=== PATIENT | female | born 1945 | race Caucasian/White ===

== ENCOUNTER 2017-04-19 22:53 | Inpatient (IN) | payer MEDICARE, MEDICAID ==
[~2017-04-19] VITALS: Ht 160 cm; Wt 50.0 kg
[~2017-04-19 22:53] MED LIST: NAPR-1154 PO; NITR100C6 PO
[2017-04-19 23:57] LABS: BASOPHILS % (AUTO) 0.4 % (0-1); EOSINOPHILS # (AUTO) 0.2 X10'3 (0-0.9); EOSINOPHILS % (AUTO) 1.9 % (0-6); HEMATOCRIT 36.4 % (35.0-45.0); LYMPHOCYTES # (AUTO) 1.5 X10'3 (1.1-4.8); LYMPHOCYTES % (AUTO) 14.3 % (21-51); MEAN CORPUSCULAR HEMOGLOBIN 30.2 PG (27.0-31.0); MEAN CORPUSCULAR VOLUME 91.6 FL (78-98); MEAN PLATELET VOLUME 8.8 FL (7.4-10.4); MONOCYTES # (AUTO) 0.6 X10'3 (0-0.9); MONOCYTES % (AUTO) 5.3 % (2-12); NEUTROPHILS # (AUTO) 8.2 X10'3 (1.8-7.7); NEUTROPHILS % (AUTO) 78.1 % (42-75); PLATELET COUNT 214 X10'3 (140-440); RED BLOOD COUNT 3.97 X10'6 (4.20-5.60); WHITE BLOOD COUNT 10.5 X10'3 (4.5-11.0)
[2017-04-20 00:15] LABS: ALANINE AMINOTRANSFERASE 59 U/L (12-78); ALBUMIN 3.5 G/DL (3.4-5.0); ALBUMIN/GLOBULIN RATIO 0.9 (1.1-1.5); ALKALINE PHOSPHATASE 130 IU/L (46-116); ANION GAP 11 (8-16); ASPARTATE AMINO TRANSFERASE 54 U/L (10-37); BILIRUBIN,TOTAL 0.5 MG/DL (0.1-1.0); BLOOD UREA NITROGEN 20 MG/DL (7-18); BUN/CREATININE RATIO 21.5 (6.6-38.0); CALCIUM 8.7 MG/DL (8.5-10.1); CHLORIDE 105 MMOL/L (99-107); CREATININE 0.93 MG/DL (0.40-0.90); GLUCOSE 131 MG/DL (70-104); POTASSIUM 3.9 MMOL/L (3.5-5.1); SODIUM 138 MMOL/L (135-145); TOTAL CARBON DIOXIDE 21.9 MMOL/L (24-32); TOTAL PROTEIN 7.3 G/DL (6.4-8.2); eGFR 59 ML/MIN
[2017-04-20] MEDS ORDERED: diltiazem 5mg/ml 5ml inj. IV ONE ×2 (00:20→01:20)
[2017-04-20] MEDS ORDERED: NO HOME MEDS (02:08)
[2017-04-20] MEDS ORDERED: magnesium hydroxide 30ml (MOM) UD suspension PO PRN (02:50)
[2017-04-20] MEDS ORDERED: ondansetron/PF 4mg/2ml inj IV PRN (02:50)
[2017-04-20] MEDS ORDERED: acetaminophen 325mg tablet PO PRN ×2 (02:50)
[2017-04-20] MEDS ORDERED: mag hydrox/Alum hydrox/simeth 30ml oral suspension PO PRN (02:50)
[2017-04-20] MEDS ORDERED: thiamine inj. 100 MG in normal saline 100ml IV soln 100 ML IV ONE (02:55)
[2017-04-20] MEDS ORDERED: LORazepam 2 mg/ml vial IV PRN (02:55)
[2017-04-20 04:17] LABS: INR 1.1 INR; PARTIAL THROMBOPLASTIN TIME 23 SECONDS (22-32); PROTHROMBIN TIME 10.9 SECONDS (9.0-12.0)
[2017-04-20] MEDS ORDERED: thiamine 100mg/ml 2ml inj. IV ONE (04:50)
[2017-04-20] MEDS: diltiazem CD 180mg cap (once-daily) PO SCH (04:58)
[2017-04-20 11:00] VITALS: BP 133/83
[2017-04-20] MEDS: multivitamins, therapeutics tablet PO SCH (11:22)
[2017-04-20] MEDS: folic acid 1mg tablet PO SCH (11:23)
[2017-04-20] MEDS: thiamine 100mg tablet PO SCH (11:23)
[2017-04-20 15:00] VITALS: BP 137/90
[2017-04-20 19:00] VITALS: BP 134/89
[2017-04-20] MEDS: apixaban 5mg tablet PO SCH (21:02)
[2017-04-20] MEDS: metoprolol tartrate 12.5mg (1/2 tablet) PO SCH (21:02)
[2017-04-20 23:00] VITALS: BP 151/84
[2017-04-21 03:00] VITALS: BP 149/98
[2017-04-21 07:00] VITALS: BP 144/107
[2017-04-21] MEDS ORDERED: furosemide 20 MG/2 ML vial IV SCH (08:00)
[2017-04-21] MEDS: metoprolol tartrate 12.5mg (1/2 tablet) PO SCH (08:49)
[2017-04-21] MEDS: folic acid 1mg tablet PO SCH (08:50)
[2017-04-21] MEDS: diltiazem CD 180mg cap (once-daily) PO SCH (08:50)
[2017-04-21] MEDS: thiamine 100mg tablet PO SCH (08:50)
[2017-04-21] MEDS: multivitamins, therapeutics tablet PO SCH (08:50)
[2017-04-21] MEDS ORDERED: metoprolol tartrate 12.5mg (1/2 tablet) PO ONE (09:25)
[2017-04-21] MEDS: apixaban 5mg tablet PO SCH (09:51)
[2017-04-21 11:00] VITALS: BP 151/109
[2017-04-21] MEDS ORDERED: FOLI1TAB16 PO (14:29)
[2017-04-21] MEDS ORDERED: MULT-1179 PO (14:29)
[2017-04-21] MEDS ORDERED: METO25TA6 PO (14:29)
[2017-04-21] MEDS ORDERED: DILT180C66 PO (14:29)
[2017-04-21] MEDS ORDERED: THI100T PO (14:29)
[2017-04-21 15:00] VITALS: BP 139/108
[2017-04-21] MEDS ORDERED: APIX5TAB3 PO (15:59)
[2017-04-21] MEDS ORDERED: metoprolol tartrate 25mg tablet PO SCH (20:00)
== END 2017-04-21 16:20 | disposition home or self-care (01) | DRG 309 ==
LOC: ER 22:53 → ED HOLD 04-20 02:49 → PCU 3S 04-20 07:00
PROVIDERS: ADMIT Internal Medicine; ATTEND Family Medicine
DX: I48.0 Paroxysmal atrial fibrillation (principal); E46 Unspecified protein-calorie malnutrition; I42.9 Cardiomyopathy, unspecified; I11.0 Hypertensive heart disease with heart failure; I50.9 Heart failure, unspecified; Z68.1 Body mass index [BMI] 19.9 or less, adult; J98.11 Atelectasis; D25.9 Leiomyoma of uterus, unspecified; F10.10 Alcohol abuse, uncomplicated; F15.90 Other stimulant use, unspecified, uncomplicated; G89.29 Other chronic pain; J44.9 Chronic obstructive pulmonary disease, unspecified; M54.9 Dorsalgia, unspecified; R91.1 Solitary pulmonary nodule; M16.12 Unilateral primary osteoarthritis, left hip; Z93.3 Colostomy status; Z59.0 Homelessness; Z91.19 Patient's noncompliance with other medical treatment and regimen; Z98.51 Tubal ligation status; Z85.038 Personal history of other malignant neoplasm of large intestine
CPT/HCPCS: 36415; 71045; 71250; 74176; 80053; 83880; 84484; 85025; 85610; 85730; 93005; 93306; 96374; 96376; 99291; J1940; J3411; J3490; J7030

== ENCOUNTER 2018-01-22 11:30 | Emergency (ER) | payer MEDICARE, MEDICAID ==
[~2018-01-22] VITALS: Ht 162.6 cm; Wt 50.0 kg
[~2018-01-22 11:30] MED LIST changes: +APIX5TAB3 PO; +DILT180C66 PO; +FOLI1TAB16 PO; +METO25TA6 PO; +MULT-1179 PO; -NAPR-1154 PO; -NITR100C6 PO; +NO HOME MEDS; +THI100T PO
[2018-01-22 13:02] VITALS: BP 145/78
== END 2018-01-22 13:00 | disposition home or self-care (01) ==
LOC: ER 11:31
DX: T44.7X1A Poisoning by beta-adrenoreceptor antagonists, accidental (unintentional), initial encounter (principal); T39.011A Poisoning by aspirin, accidental (unintentional), initial encounter; I10 Essential (primary) hypertension; G89.29 Other chronic pain; F15.10 Other stimulant abuse, uncomplicated; Z79.899 Other long term (current) drug therapy; Z60.2 Problems related to living alone; Y92.89 Other specified places as the place of occurrence of the external cause
CPT/HCPCS: 99284

== ENCOUNTER 2019-02-21 10:46 | Emergency (ER) | payer MEDICARE, MEDICAID ==
[~2019-02-21] VITALS: Ht 162.6 cm; Wt 44.4 kg
[2019-02-21 10:56] VITALS: BP 168/120
[2019-02-21] MEDS ORDERED: ibuprofen tablet 400 MG TABLET PO ONE (11:15)
[2019-02-21] MEDS ORDERED: acetaminophen 325mg tablet PO ONE (11:15)
== END 2019-02-21 11:48 | disposition home or self-care (01) ==
LOC: ER 10:46
DX: M79.604 Pain in right leg (principal); M79.651 Pain in right thigh; I10 Essential (primary) hypertension; G89.29 Other chronic pain; F15.90 Other stimulant use, unspecified, uncomplicated; Z79.899 Other long term (current) drug therapy; Z60.2 Problems related to living alone; Z85.038 Personal history of other malignant neoplasm of large intestine
CPT/HCPCS: 99284

== ENCOUNTER 2020-03-17 15:01 | Emergency (ER) | payer MEDICARE, MEDICAID ==
[~2020-03-17] VITALS: Ht 165.1 cm; Wt 50.0 kg
[~2020-03-17 15:01] MED LIST changes: -APIX5TAB3 PO; +ASPI-1397 PO; +ATOR40TA72 PO; +CARV3.122 PO; -DILT180C66 PO; +FOLI0.4T14 PO; -FOLI1TAB16 PO; +HYDR-4070 PO; -METO25TA6 PO; -MULT-1179 PO; -NO HOME MEDS; +RIVA20TA PO; -THI100T PO
[2020-03-17 15:03] VITALS: BP 164/104
[2020-03-17 15:22] LABS: CLARITY,URINE CLOUDY (Clear); COLOR,URINE YELLOW (Yellow); GLUCOSE, URINE NEGATIVE (Neg); KETONES,URINE NEGATIVE (Neg); LEUKOCYTE ESTERASE ,URINE TRACE (Neg); NITRITES, URINE POSITIVE (Neg); OCCULT BLOOD,URINE NEGATIVE (Neg); PH,URINE 5.5 (4.8-8.0); PROTEIN,URINE TRACE mg/dl (Neg); UROBILINOGEN,URINE 0.2 E.U/dL (0.2-1.0)
[2020-03-17 15:26] LABS: UA COLLECTION TYPE VOIDED
[2020-03-17 15:27] LABS: BACTERIA,URINE 4+ /HPF (Neg); MUCUS STRANDS FEW /LPF (Neg); RBC,URINE NONE SEEN /HPF (0-2); SQUAMOUS EPITHELIAL CELL,UR FEW /LPF (FEW)
[2020-03-17] MEDS ORDERED: CEPH500C5 PO (15:58)
[2020-03-17] MEDS ORDERED: VALA10002 PO (16:01)
== END 2020-03-17 16:11 | disposition home or self-care (01) ==
LOC: ER 15:02
DX: N39.0 Urinary tract infection, site not specified (principal); N76.6 Ulceration of vulva; I48.91 Unspecified atrial fibrillation; I10 Essential (primary) hypertension; G89.29 Other chronic pain; F15.90 Other stimulant use, unspecified, uncomplicated; Z72.89 Other problems related to lifestyle; Z79.82 Long term (current) use of aspirin; Z79.899 Other long term (current) drug therapy
CPT/HCPCS: 36415; 81001; 87088; 87491; 99283